=== PATIENT | male | born 1985 ===

== ENCOUNTER 2021-07-25 09:26 | Outpatient (REF) | payer MEDICAID, SELFPAY ==
--- NOTE | ~2021-07-25 | US_ITS ---
EXAMINATION: US PELVIS, LIMITED/FOLLOW UP CLINICAL INFORMATION: Tender right inguinal mass. Question hernia versus lymphadenopathy COMPARISON: None TECHNIQUE: Grayscale and color imaging of the right inguinal region using a linear transducer FINDINGS: There are 5 right inguinal lymph nodes seen. These are normal in size and demonstrate normal ultrasound morphology and flow. No hernia is seen. US/US pelvic limited IMPRESSION: Right inguinal lymphadenopathy.
== END 2021-07-25 09:27 | disposition home or self-care (01) ==
LOC: HO.US 09:26
PROVIDERS: PCP Registered Nurse; Visit Provider Registered Nurse
DX: R19.09 Other intra-abdominal and pelvic swelling, mass and lump (principal)
CPT/HCPCS: 76857

== ENCOUNTER 2022-08-25 12:49 | Emergency (ER) | payer MEDICAID, SELFPAY ==
--- NOTE | ~2022-08-25 | CT_ITS ---
EXAMINATION: CT ABDOMEN AND PELVIS WITH CONTRAST CLINICAL INFORMATION: Postsurgical local swelling COMPARISON: None available. TECHNIQUE: Multidetector volumetric images were obtained from the superior aspect of the liver through the pubic symphysis following administration 85 mL of Omnipaque 350 intravenous contrast. Sagittal and coronal reformatted images were obtained on the technologist's workstation. Oral contrast: No This CT examination was performed using dose optimization techniques as appropriate, variously including the following: *Automated exposure control *Adjustment of mA and/or kV according to patient size (this includes techniques or standardized protocols for targeted exams where dose is matched to indication/reason for exam; i.e. extremities or head) *Use of iterative reconstruction technique DLP: 982 mGy-cm FINDINGS: LUNG BASES: There is atelectasis at the right lung base. There is large pleural effusion on the left surrounding consolidation of the left lower lobe LIVER, GALLBLADDER, AND BILIARY TREE: The liver is normal in size, shape, and attenuation. No focal hepatic lesion or biliary ductal dilatation is present. The gallbladder is unremarkable with no evidence of radiopaque gallstones, gallbladder wall thickening, or obvious pericholecystic inflammatory changes. PANCREAS: Unremarkable. SPLEEN: Unremarkable. There is small amount of gas in the left border or the spleen ADRENAL GLANDS: Unremarkable. KIDNEYS AND URETERS: There is infarct of the lower pole of left kidney with surgical material surrounding and small amount of gas surrounding left kidney, most likely due to infection but perforation of adjacent bowel loop couldn't be excluded. There is large collection of low-attenuation fluid extending from the mid left kidney cephalad, with attenuation of - 8HU, likely a urinoma. Small amount of gas seen in this collection due to early abscess formation. The fluid collection abating the left psoas muscle with irregularity of psoas muscle most likely due to hematoma. There is small amount of surgical material seen in the lower portion of collection possibly retained surgical material versus sutures. BLADDER: Unremarkable. GASTROINTESTINAL TRACT: No evidence of bowel obstruction. Small amount of gas adjacent to the stomach and left side of the colon could be related to bowel perforation versus infection. Abdominal wall: The left side of the abdominal wall revealed ill-defined soft tissue mass related to recent surgical procedure and surgical wound with small amount of fluid collection. There is a small collection is inseparable from the anterior abdominal wall, extending toward the collection in the left perinephric space. LYMPH NODES: Normal. VASCULAR: Unremarkable. PELVIC VISCERA: Unremarkable. OSSEOUS STRUCTURES: Unremarkable. CT/CT abdomen pelvis w IV con IMPRESSION: 1. Large left pleural effusion, surrounding consolidation of left lower lobe. 2. Infarct of the lower pole of left kidney with large, possibly infected urinoma. 3. Small amount of gas adjacent to the stomach and left side of the colon most likely related to bowel perforation versus extension of infection from left urinoma. 4. Hematoma in the left psoas muscle and left anterior abdominal wall. 5. Surgical wound in the left side of the abdominal wall with small amount of fluid collection. This critical result was discussed with Dr. Paula at 1607 on 08/25/2022 and it was ascertained that the content and urgency of the report was understood at the time of direct communication. Fleischner guidelines were followed.
[2022-08-25 13:54] VITALS: BP 131/81; PULSE 105; RESP 20; TEMP 36.8; O2SAT 100; BMI 25.0
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
[2022-08-25 14:00] VITALS: BP 124/78; PULSE 105; RESP 16; TEMP 37.1; O2SAT 98
[2022-08-25 14:14] LABS: MANUAL DIFF FLAG NO
[2022-08-25 14:18] LABS: Basophils Percent Auto 0.1 % (0-2); Eosinophils Percent Auto 0.3 % (0-4); Hematocrit 28.7 % (42.0-52.0); Hemoglobin 9.1 g/dl (14.0-18.0); Imm Gran Abs Auto 0.06 X10*3/uL (0.00-0.03); Imm Gran Pct Auto 0.5 % (0.0-0.4); Lymphocytes Absolute Auto 1.6 X10*3/uL (1.2-4.9); Lymphocytes Percent Auto 12.2 % (20-40); Mean Corpuscular HGB Conc 31.7 g/dl (31.0-36.0); Mean Corpuscular Hemoglobin 27.8 pg (27.0-33.0); Mean Corpuscular Volume 87.8 fL (80.0-98.0); Mean Platelet Volume 8.9 fL (9.4-12.4); Monocytes Absolute Auto 0.8 X10*3/uL (0.1-1.2); Monocytes Percent Auto 5.8 % (2-11); Neutrophils Absolute Auto 10.8 x10*3/uL (2.0-8.3); Neutrophils Percent Auto 81.1 % (45-73); Platelet Count 619 X10*3/uL (160-400); Red Blood Count 3.27 X10*6/uL (4.60-5.80); Red Cell Distribution Width 13.9 % (11.0-16.0); White Blood Count 13.3 X10*3/uL (4.8-10.8)
[2022-08-25 14:38] LABS: Alanine Aminotransferase 11 U/L (0-40); Albumin Level 3.8 g/dL (3.5-5.0); Alkaline Phosphatase 64 U/L (39-117); Anion Gap 15 (12-20); Aspartate Amino Transferase 16 U/L (5-37); Bilirubin Total 0.3 mg/dL (0.0-1.0); Blood Urea Nitrogen 14 mg/dL (9-16); Calcium 10.1 mg/dL (8.4-10.2); Carbon Dioxide 24 mmol/L (22-29); Chloride 105 mmol/L (96-108); Creatinine Clr Calc Pharmacy 122.8; Estimated Glomerular Filt Rate > 60; Glucose Random 95 mg/dL (60-115); Lipase 27 U/L (8-78); Potassium 4.4 mmol/L (3.3-5.1); Sodium 140 mmol/L (135-145); Total Protein 8.9 g/dL (6.5-8.0)
[2022-08-25 14:48] LABS: Appearance Urine Turbid; Color Urine Dark Yellow; Glucose Urine UA Negative (Negative); Leukocyte Esterase Urine Small (1+) (Negative); Nitrite Urine Negative (Negative); PH 5.5 (5.0-9.0); Specific Gravity - Urine >= 1.030 (1.005-1.025); UMIC TRIGGER UACC YES; Urine Blood Moderate (2+) (Negative); Urine Ketones Trace mg/dL (Negative); Urine Protein 100 (2+) mg/dL (Neg-Trace)
--- NOTE | 2022-08-25 14:52 | PC.NURSE ---
PT REFUSING TO SIT DOWN FOR IV ACCESS, HE WILL NOT END HIS PHONE CONVERSATION AT THIS TIME. WILL RE ATTEMPT WHEN PHONE CALL HAS BEEN COMPLETED
[2022-08-25 14:57] LABS: Bacteria Urine None Seen (None Seen); Hyaline Casts Urine 0-2 /LPF (0-2); RBC Urine 0-2 /HPF (0-2); Squamous Epithelial Cell Urine 0-2 /HPF (0-2); UACC Culture Trigger YES; WBC Urine >50 /HPF (0-5)
[2022-08-25] MEDS: iohexoL 350 MG/ML 100 ML INFUS..BTL IV (15:24)
[2022-08-25 15:28] VITALS: BP 120/52; PULSE 97; RESP 14; TEMP 37.1; O2SAT 99
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
== END 2022-08-25 17:19 | disposition left against medical advice (07) ==
PROVIDERS: Physician Assistant; Emergency Provider Emergency Medicine; PCP Registered Nurse
DX: R10.32 Left lower quadrant pain (principal); Z79.899 Other long term (current) drug therapy
CPT/HCPCS: 36415; 74177; 80053; 81001; 83690; 85025; 87086; 99284; Q9967

== ENCOUNTER 2023-07-12 03:19 | Emergency (ER) | payer MEDICAID, SELFPAY ==
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
[2023-07-12 03:21] VITALS: BP 146/90; PULSE 86; O2SAT 99
[2023-07-12 03:28] VITALS: BP 125/79; PULSE 69; RESP 18; O2SAT 98
[2023-07-12 03:33] VITALS: BMI 26.6
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
--- OUTSIDE RECORDS SUMMARY | 2023-07-12 04:42 | XMS_ITS | Continuity of Care Document ---
Author Organization [facility] ter Address [address] [place] [id number]- Care Team Providers Care Estate Planning Attorney Name Role Phone [place] LEVEL VIAL INSIDE GRINDER, Lary Primary Care Physician Encounter [facility] [place] Date(s): 10/15/22 - 10/15/[address] [address] Discharge Disposition: A-D/C Home Attending Physician: Mxa Holt MD Admitting Physician: Max Holt MD Referring Physician: Max Holt MD Allergies, Adverse Reactions, Alerts No Known Allergies Medications acetaminophen 325 mg oral capsule 1 capsule = 325 mg, By Mouth, Every 4 hours, PRN as needed for pain, # 20 capsule, 0 Refills, Maintenance, 09/25/22 9:13:00 EDT, Capsule, Partial fill upon patient request if the prescription is for a schedule II opioid drug. Start Date: 09/25/22 Status: Ordered acetaminophen 325 mg oral tablet 650 mg, 2, tablet, By Mouth, Every 4 hours, # 30 tablet, Refills 0, Tot. Refills 0, Maintenance, 09/25/22 10:01:00 EDT, Route to Pharmacy Electronically, [facility] #[id number], Partial fill upon patient request if the prescription is for a sched... Start Date: 09/25/22 Status: Ordered Bedside Commode Bedside Commode, See Instructions, # 1 each, Refills 0, Tot. Refills 0, Maintenance, Bedside Commode, 08/07/22 17:08:00 EDT, Supply Start Date: 08/07/22 Status: Ordered Colace sodium 100 mg oral capsule 100 mg, 1, capsule, By Mouth, 2 times a day, # 28 capsule, Refills 0, Tot. Refills 0, Maintenance, 08/07/22 16:49:00 EDT, Route to Pharmacy Electronically, [facility], Partial fill uponpatient request if the prescription is for a schedu... Start Date: 08/07/22 Stop Date: 08/21/22 Status: Ordered gabapentin 300 mg oral capsule 300 mg, By Mouth, Every 8 hours, # 42 capsule, Refills 0, Tot. Refills 0, Maintenance, 09/03/22 13:35:00 EDT, Route to Pharmacy Electronically, [facility], Partial fill upon patient request if the prescription is for a schedule II opioid... Start Date: 09/03/22 Stop Date: 09/17/22 Status: Ordered gabapentin 300 mg oral capsule 300 mg, 1, capsule, By Mouth, 3 times a day, # 270 capsule, Refills 0, Tot. Refills 0, Maintenance,09/25/22 10:00:00 EDT, Route to Pharmacy Electronically, [facility] #[id number], Partial fill upon patient request if the prescription is for a sc... Start Date: 09/25/22 Status: Ordered gabapentin 300 mg oral capsule 300 mg, 1, capsule, By Mouth, 3 times a day, # 270 capsule, Refills 0, Tot. Refills 0, Maintenance,08/18/22 14:02:00 EDT, Route to Pharmacy Electronically, [facility] #[id number], Partial fill upon patient request if the prescription is for a sc... Start Date: 08/18/22 Status: Ordered gabapentin 300 mg oral capsule 300 mg, 1, capsule, By Mouth, 3 times a day, # 42 capsule, Refills 0, Tot. Refills 0, Maintenance, 08/07/22 16:49:00 EDT, Route to Pharmacy Electronically, [facility], Partial fill uponpatient request if the prescription is for a schedu... Start Date: 08/07/22 Stop Date: 08/21/22 Status: Ordered ibuprofen 600 mg oral tablet 600 mg, 1, tablet, By Mouth, 4 times a day, PRN, # 40 tablet, Refills 0, Maintenance, for pain, 09/25/22 9:14:00 EDT, Partial fill upon patient request if the prescription is for a schedule II opioiddrug. Start Date: 09/25/22 Status: Ordered ibuprofen 600 mg oral tablet 600 mg, 1, tablet, By Mouth, 4 times a day, # 120 tablet, Refills 0, Tot. Refills 0, Maintenance, 09/25/22 9:59:00 EDT, Route to Pharmacy Electronically, [facility] #[id number], Partial fill upon patient request if the prescription is for a sched... Start Date: 09/25/22 Status: Ordered oxyCODONE 5 mg oral capsule 2 capsule = 10 mg, By Mouth, Every 6 hours, PRN as needed for pain, 0 Refills, Maintenance, 09/25/22 9:14:00 EDT, Capsule, Partial fill upon patient request if the prescription is for a schedule II opioid drug. Start Date: 09/25/22 Status: Ordered Oxycodone 5mg Oral Tablet (PACU ONLY) 5 mg, Tablet, By Mouth, Once, in PACU ONLY, PRN for Pain , Moderate, Routine, 10/15/22 13:36:00 EDT Start Date: 10/15/22 Stop Date: 10/15/22 Status: Completed Problem List Condition Confirmation Course Effective Dates Status [facility] atus Informant Kidney laceration Confirmed Active Results Radiology Reports * Exam Date Time Procedure Performing Provider Status 10/15/22 1:10 PM C-Arm < 1 Hour Ray Branch ( Verified) Notes: (C-Arm < 1 Hour) Reason For Exam: L CYSTO STENT REMOVAL RESULT: C-Arm < 1 Hour Urethrocystography Retrograde, C-Arm < 1 Hour INDICATION: Reason: L CYSTO STENT REMOVAL; Special Instructions: TT- 30 MIN FT- 15 SEC DAP- .5297 COMPARISONS: None TECHNIQUE: Fluoroscopy support was provided. There was no radiologist in attendance. FLUOROSCOPY TIME: 15 seconds EXPOSURE: .5297 Gycm2 (Dose Area Product) TECHNOLOGIST TIME: 30 minutes FINDINGS: 9 images were submitted. Please refer to operative note for full details. IMPRESSION: See above. WSN: [id number] Ordering Physician: Max Holt Dictated By: Sanju Meraz MD Dictated Date/Time: 10/15/22 3:00 pm Reviewed By: Sanju Meraz MD Signed By: Sanju Meraz MD Signed Date/Time: 10/15/22 3:00 pm Transcribed By: JOANN Transcribed Date/Time: 10/15/22 3:00 pm * Exam Date Time Procedure Performing Provider Status 10/15/22 1:10 PM Urethrocystography Retrograde Nomi Branch; Maikol (Verified) Notes: (Urethrocystography Retrograde) Reason For Exam: L CYSTO STENT REMOVAL RESULT: Urethrocystography Retrograde Urethrocystography Retrograde, C-Arm < 1 Hour INDICATION: Reason: L CYSTO STENT REMOVAL; Special Instructions: TT- 30 MIN FT- 15 SEC DAP- .5297 COMPARISONS: None TECHNIQUE: Fluoroscopy support was provided. There was no radiologist in attendance. FLUOROSCOPY TIME: 15 seconds EXPOSURE: .5297 Gycm2 (Dose Area Product) TECHNOLOGIST TIME: 30 minutes FINDINGS: 9 images were submitted. Please refer to operative note for full details. IMPRESSION: See above. WSN: [id number] Ordering Physician: Max Holt Dictated By: Sanju Meraz MD Dictated Date/Time: 10/15/22 3:00 pm Reviewed By: Sanju Meraz MD Signed By: Sanju Meraz MD Signed Date/Time: 10/15/22 3:00 pm Transcribed By: JOANN Transcribed Date/Time: 10/15/22 3:00 pm Vital Signs Most recent to oldest [Reference Range]: 1 2 3 Oxygen Saturation [94-100 %] 100 % (10/15/22 2:15 PM) 100 % (10/15/22 2:00 PM) 98 % (10/15/22 1:45 PM) Pulse Rate [55-90 bpm] 78 bpm (10/15/22 1:15 PM) 78 bpm (10/15/22 12:24 PM) Blood Pressure [90-138/55-84 mm Hg] 124/79mm Hg (10/15/22 2:15 PM) 119/79mm Hg (10/15/22 2:00 PM) 119/72mm Hg (10/15/22 1:45 PM) Respiratory Rate [16-30 br/min] 16 br/min (10/15/22 2:15 PM) 18 br/min (10/15/22 2:00 PM) 15 br/min *L* (10/15/22 1:45 PM) Temperature [96.8-100.4 DegF] 97.8 DegF (10/15/22 2:00 PM) 97.9 DegF (10/15/22 1:15 PM) 98.8 DegF (10/15/22 12:24 PM) Liters per Minute 6 L/min (10/15/22 1:15 PM) Mode of Delivery (Oxygen) Room air (10/15/22 2:00 PM) Room air (10/15/22 1:45 PM) Room air (10/15/22 1:30 PM) Blood pressure sites Arm, left (10/15/22 2:15 PM) Arm, left (10/15/22 2:00 PM) Arm, left (10/15/22 12:24 PM) Temperature Route Temporal (10/15/22 2:00 PM) Temporal (10/15/22 1:15 PM) Temporal (10/15/22 12:24 PM) Dry Weight 78.7 kg (10/15/22 12:24 PM) Dry Weight Obtained Via Standing scale (10/15/22 12:24 PM) Social History Social History Type Response Sex Male Note * Indira Quick: PERFORM Event Display: Discharge/Transfer Note Hospital Authored Date: [id number] Nursing Discharge Note Entered On: 10/15/2022 15:01 EDT Performed On: 10/15/2022 15:01 EDT by Indira Quick Nursing Discharge Note 2 Discharge Time : 10/15/2022 14:59 EDT Discharge Level of Care at Discharge : Home/Senior Care/Foster Care Patient Left Unit Via : Wheelchair Patient Accompanied Off Unit with : Significant other DC Instructions Provided & Signed by Pt : Yes Patient Understands D/C Instructions : Yes Verbalized Understanding of D/C Plan By : Patient, Significant other Patient Instructions Discharge Signed : Yes Did Pt have Specialty Bed or Wound Vac : No Indira Quick - 10/15/2022 15:01 EDT * Indira Quick: PERFORM Event Display: Patient Education/Instruction Authored Date: [id number] Surgery Adult Discharge Instructions [address] [address] Name: ROSETTE THOMPSON : 1985?? Visit: 10/15/2022 11:56?? Current Date: 10/15/2022 13:55 ?? Account: [id number]?? Surgery Discharge Instructions We would like to thank you for allowing us to assist you with your healthcare needs. The following includes patient education materials and information regarding your injury/illness. Our entire staffstrives to provide an excellent experience for our patients and their families. PLEASE ENSURE YOU FOLLOW-UP PER THE INSTRUCTIONS BELOW! ?? YOUR OPINION IS IMPORTANT TO US! Please complete the survey you may receive by mail or email. Your feedback will be used to make improvements to the healthcare experiences of our patients and their families. Surveys are administered by [employer] ?? If further treatment with your primary care physician or another doctor is recommended, it is important for you to keep the appointment. Call your primary care physician or return to the Emergency Department immediately if your condition worsens, fails to improve, or new symptoms develop. If you need to find a doctor, you can call [facility] [employer] for a referral at [phone] or toll free at [phone] ([phone]) or log in to [email or web address].. ?? You can view and manage your care through the patient portal or by using a health care klarissa of your choosing. Th[employer] is a website that allows you to securely view your medical information including your hospital discharge summary, office visit summaries, medications and follow-up visits. You can also request appointments, renew medications, and request access to your medical information using a health care klarissa of your choosing, or just ask a question. You are entitled to know the individuals who participated in your treatment. This information is available within your medical record and will be provided upon your request. You can enroll at [email or web address] or register d uring your next office visit. You have been discharged from [facility], Patient Care Unit: [facility]??. If you have any questions regarding these instructions after you leave, please call us and we will be happy to assist you. [facility] Your Care Team Attending Physician Max Holt MD?? Discharging Providers Max Holt MD Reason for Admission LACERATION OF LEFT KIDNEY CYSTO DS CS Primary Care Provider [place] LEVEL VIAL INSIDE GRINDER, Lary? Advance Directive Health Care Proxy on File No What to do next Instructions From Your Doctor ?? Orders?? Daystay Protocol, ??When Unit Discharge Criteria Met, ??10/15/22 13:11:00 EDT?? Prescriptions??, ??10/15/22 13:11:00 EDT?? Instructions from your Care Team per provided paperwork You Need to Schedule the Following Appointments Follow Up with??Max Holt Where: [address] [facility] [place] [address]- Business (1) Follow Up with??[facility] When:??In 0 days Where: [address] [place] [address]- Business (1) Discharge Medications ROSETTE THOMPSON :1985 Visit Date:10/15/2022 Medications: Please continue your medications until treatment is completed or stopped by your provider. You may resume your daily prescription medications. Discuss any questions related to medications with your provider. What How Much When Instructions Next Dose Unchanged Acetaminophen (acetaminophen 325 mg oral capsule) 1 capsule Oral Every 4 hours as needed for as needed for pain Unchanged Acetaminophen (acetaminophen 325 mg oral tablet) 2 tab(s) Oral Every 4 hours Unchanged Docusate (Colace sodium 100 mg oral capsule) 1 capsule Oral Twice a day Duration: 14 Days Unchanged Gabapentin (gabapentin 300 mg oral capsule) 1 capsule Oral 3 times a day Unchanged Gabapentin (gabapentin 300 mg oral capsule) 1 capsule Oral 3 times a day Unchanged Gabapentin (gabapentin 300 mg oral capsule) 300 Milligram Oral Every 8 hours Duration: 14 Days Unchanged Gabapentin (gabapentin 300 mg oral capsule) 1 capsule Oral 3 times a day Duration: 14 Days Unchanged Ibuprofen (ibuprofen 600 mg oral tablet) 1 tab(s) Oral 4 times a day as needed for for pain Unchanged Ibuprofen (ibuprofen 600 mg oral tablet) 1 tab(s) Oral 4 times a day Unchanged Miscellaneous Rx (Bedside Commode) See instructions Bedside Commode ?? Unchanged Oxycodone (oxyCODONE 5 mg oral capsule) 2 capsule Oral Every 6 hours as needed for as needed for pain Allergies (NKA means No Known Allergies) NKA Education Materials Below is the list of Educational Leaflet Providered with your Discharge Instructions. Surgery Medical Daystay Surgical Overnight Discharge Instructions?? Surgery Medical Daystay Surgical Overnight Discharge Instructions?? Valuables and Belongings I fully understand and agree that [facility] accepts no responsibility for all my personal property including clothing, toilet articles, radios, jewelry, dentures, hearing aids, rings, money, or any other property that is in my possession or is brought to me after admission. I understand certain valuables may be placed in a hospital safe for a short period of time. I understand that the hospital is not liable for loss or damage due to accident, fire, or other natural occurrence while said property is in the safe. I accept full responsibility for any personal property that I keep with me, and will not hold the hospital responsible in case of loss or disappearance. I acknowledge that i have been encouraged to send valuables and belongings home. ?? Review of Valuable and Belonging List: With patient Date for Pt to Sign Valuables/Belongings: 10/15/22 12:24:00 ?? Valuables & Belongings ?? Clothes Electronic devices Jewelry Monetary Items Personal devices Miscellaneous Medications (Valuables) Valuables at Bedside Pants, Shirt, Shoes, Undergarments Cell phone Necklace, Watch Money Glasses ? Valuables Sent Home ? Valuables Sent to Security ? Other Discharge Information ? Pulmonary Rehab Status?? Pulmonary Rehab Discharge Status?? Respiratory Rate:??15 br/min??Low ? Common Emergency Awareness Tips IS IT A STROKE? Act FAST and Check for these signs: FACE Does the face look uneven? ARM Does one arm drift down? SPEECH Does their speech sound strange? TIME Call at any sign of stroke ?? Heart Attack Signs Chest discomfort: Most heart attacks involve discomfort in the center of the chest and lasts more than a few minutes, or goes away and comes back. It can feel like uncomfortable pressure, squeezing, fullness or pain. Discomfort in upper body: Symptoms can include pain or discomfort in one or both arms, back, neck, jaw or stomach. Shortness of breath: With or without discomfort. Other signs: Breaking out in a cold sweat, nausea, or lightheaded. Remember, MINUTES DO MATTER. If you experience any of these heart attack warning signs, call to get immediate medical attention! ?? Smoking can increase your chances of developing chronic health problems and can cause harmful effects to other family members in your house. If you smoke, you are strongly encouraged to quit. Please call [facility] [employer] at [phone] or [phone] ([phone]) or log in to [email or web address] for referrals to smoking cessation programs. ?? The National Suicide Prevention Hotline is available 29/09 if you or someone you know needs to find a reason to keep living. By calling 2-663-601-Weesh (3287) you'll be connected to a skilled, trained counselor at a crisis center in your area. SURGERY DISCHARGE INSTRUCTIONS SIGNATURE ROSETTE HOPE Location:[facility] Registration Date and Time:10/15/2022 11:56 EDT Primary Care Physician: Lary Rubin NP, Attending Physician: Max Holt MD, I ROSETTE THOMPSON, have received the above patient education materials/instructions and have verbalized understanding. If ambulance or transport services are being used I further acknowledge being givena choice of service. ?? If you need to contact me, please call me at this number: . Patient/Instrumentation And Control Technician Name: Patient/Instrumentation And Control Technician Signature: Relationship to Patient: Witness Name/Signature: Date: * Tyesha Rankin RN: PERFORM, SIGN, VERIFY Event Display: Patient Education Handout Authored Date: [id number] * Indira Quick: PERFORM Event Display: Patient Education Leaflets Authored Date: [id number] Surgery Medical Daystay Surgical Overnight Discharge Instructions ?? 295 Medical Daystay/Surgical Overnight Discharge Instructions ? Since your coordination and judgment may be altered by medication and/or anesthesia, a responsible adult must drive you home from the hospital. ? If you have received medication for pain or sedation while under our care, you should not drive, operate machinery, drink alcohol, or sign any legal documents for 24 hours.?? You should have someone with you at home tonight. ? Remain at home the day of discharge.?? You may be up and about unless otherwise instructed by your physician. ? You may resume your daily prescription medication schedule.?? Any depressant medication should be avoided for 24 hours unless otherwise instructed by your surgeon or anesthesiologist. ? Call your physician for a follow-up appointment.? If you experience unusual or severe pain not relied by your pain medication, excessive bleedingor drainage, persistent nausea and vomiting, excessive swelling or redness, foul odor from incisionsite or fever over 100.6F, you need to call your physician. ? A follow-up phone call by a nurse will be made the day after your procedure.?? If you have stayed with us over night, you will not be receiving a follow-up phone call. ? Nausea and vomiting are a common side effect of prescription pain medication.?? We recommend that pills are not taken on an empty stomach.?? While taking any prescription pain medication you should not drive or drink alcohol. ? * Massiel DILLARD, Tyesha: PERFORM Event Display: Patient Education Leaflets Authored Date: [id number] Surgery Medical Daystay Surgical Overnight Discharge Instructions ?? 295 Medical Daystay/Surgical Overnight Discharge Instructions ? Since your coordination and judgment may be altered by medication and/or anesthesia, a responsible adult must drive you home from the hospital. ? If you have received medication for pain or sedation while under our care, you should not drive, operate machinery, drink alcohol, or sign any legal documents for 24 hours.?? You should have someone with you at home tonight. ? Remain at home the day of discharge.?? You may be up and about unless otherwise instructed by your physician. ? You may resume your daily prescription medication schedule.?? Any depressant medication should be avoided for 24 hours unless otherwise instructed by your surgeon or anesthesiologist. ? Call your physician for a follow-up appointment.? If you experience unusual or severe pain not relied by your pain medication, excessive bleedingor drainage, persistent nausea and vomiting, excessive swelling or redness, foul odor from incisionsite or fever over 100.6F, you need to call your physician. ? A follow-up phone call by a nurse will be made the day after your procedure.?? If you have stayed with us over night, you will not be receiving a follow-up phone call. ? Nausea and vomiting are a common side effect of prescription pain medication.?? We recommend that pills are not taken on an empty stomach.?? While taking any prescription pain medication you should not drive or drink alcohol. ? Patient Care team information Care Team Personnel Name: Trevon Montes RN Position: [facility] RN Member Role: Primary Care Nurse Name: Jud Bravo RN Position: S RN Member Role: Primary Care Nurse Name: Lila Galloway RN Position: S RN Member Role: Primary Care Nurse Name: Rachael Michele RN Position: S RN Member Role: Primary Care Nurse Name: Roxie Potts RN Position: S RN Member Role: Primary Care Nurse Name: Janiya Hayes RN Position: S RN Member Role: Primary Care Nurse Name: Lary Rubin NP Position: Reference Physician Member Role: PCP Address: Address: [address] [place] [address]- Care Team Related Persons Name: ESTEBAN ESPARZA Address: home [place] [address]
--- OUTSIDE RECORDS SUMMARY | 2023-07-12 04:42 | XMS_ITS | Continuity of Care Document ---
Author Organization [facility] Address [address] [place] [address] ve [address] [place] [address]- Care Team Providers Care Creative Writing Professor Name Role Phone Harmony MATERIALS SUPERVISOR, Lary Primary Care Physician [phone] [place] [facility] [place] - 10/02/[address] [place] [address]- Attending Physician: Elicia Chase MD Allergies, Adverse Reactions, Alerts No Known [...] 09/25/22 10:01:00 EDT, Route to Pharmacy Electronically, [email or web address] #[id number], Partial fill upon patient request if the [...] 08/07/22 16:49:00 EDT, Route to Pharmacy Electronically, [facility], Partial fill uponpatient request if the prescription is for a schedu... Start Date: 08/07/22 Stop Date: 08/21/22 Status: Ordered gabapentin 300 mg oral capsule 300 mg, By Mouth, Every 8 hours, # 42 capsule, Refills 0, Tot. Refills 0, Maintenance, 09/03/22 13:35:00 EDT, Route to Pharmacy Electronically, [facility], Partial fill upon patient request if the prescription is for a schedule II opioid... Start Date: 09/03/22 Stop Date: 09/17/22 Status: Ordered gabapentin 300 mg oral capsule 300 mg, 1, capsule, By Mouth, 3 times a day, # 270 capsule, Refills 0, Tot. Refills 0, Maintenance,09/25/22 10:00:00 EDT, Route to Pharmacy Electronically, [facility] #[id number], Partial fill upon patient request if the prescription is for a sc... Start Date: 09/25/22 Status: Ordered gabapentin 300 mg oral capsule 300 mg, 1, capsule, By Mouth, 3 times a day, # 270 capsule, Refills 0, Tot. Refills 0, Maintenance,08/18/22 14:02:00 EDT, Route to Pharmacy Electronically, [facility] #[id number], Partial fill upon patient request if the prescription is for a sc... Start Date: 08/18/22 Status: Ordered gabapentin 300 mg oral capsule 300 mg, 1, capsule, By Mouth, 3 times a day, # 42 capsule, Refills 0, Tot. Refills 0, Maintenance, 08/07/22 16:49:00 EDT, Route to Pharmacy Electronically, [facility], Partial fill uponpatient request [...] 09/25/22 9:59:00 EDT, Route to Pharmacy Electronically, [email or web address] #[id number], Partial fill upon patient request if the [...] opioid drug. Start Date: 09/25/22 Status: Ordered Problem List Condition Confirmation Course Effective Dates Status Health St atus Informant Kidney laceration Confirmed Active Vital Signs Most recent to oldest [Reference Range]: 1 Height 178 cm (09/25/22 9:09 AM) Weight 79.4 kg (09/25/22 9:09 AM) Pulse Rate [55-90 bpm] 104 bpm *H* (09/25/22 9:09 AM) Body Mass Index [18.5-24.99 kg/m2] 25.06 kg/m2 *H* (09/25/22 9:09 AM) Blood Pressure [90-138/55-84 mm Hg] 102/ 64mm Hg (09/25/22 9:09 AM) Temperature [96.8-100.4 DegF] 96.9 DegF (09/25/22 9:09 AM) Blood pressure sites Arm, left (09/25/22 9:09 AM) Temperature Route Temporal (09/25/22 9:09 AM) Weight Obtained Via Standing scale (09/25/22 9:09 AM) Social History Social History Type Response Sex Male Patient Care team information Care Team Personnel Name: Trevon Montes RN Position: S RN Member Role: Primary [...] RN Member Role: Primary Care Nurse Name: Harmony Lary GRIFFITH Position: Reference Physician Member Role: PCP Address: Address: [address] [place] [id number]- Care Team Related Persons Name: ISAIASMAGDA Address: [place] [address]
--- OUTSIDE RECORDS SUMMARY | 2023-07-12 04:42 | XMS_ITS | Continuity of Care Document ---
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 [facility] CT scan of 08/25/2022 FINDINGS: [employer] View Findings, Lines and Tubes: None. Visualized Chest: Significant left lung base atelectasis with very mild right lung base atelectasis. There is a moderate low-attenuation left pleural effusion. Normal cardiac size without pericardialeffusion. Diaphragm: Normal. Liver: Normal. Gallbladder: No CT evidence of gallbladder pathology. Bile ducts: No biliary ductal dilation. Spleen: Normal. Pancreas: Normal. Adrenal glands: Normal. Kidneys and ureters: The right kidney and right ureter are unremarkable. On the left, there is absence of enhancement in the inferior pole consistent with infarct. Parenchymal thickness is normal. There is radiopaque hemostatic material along the margins of the lower pole. Multiple bubbles of gas are noted along the margin of the lower pole. There is normal parenchymal enhancement in the rest of the left kidney. Good contrast excretion is noted with no evidence of extravasation from the kidney.Along the lateral aspect of the left kidney and extending inferior to it, there is a large low-attenuation fluid collection measuring approximately 15.7 cm CC by 8.8 cm transverse by 9.4 cm AP. Some h emostatic material is present in its inferior aspect. Attenuation of this fluid is 14 Hounsfield units. It extends close to the site of previous colon resection but appears separate from and. Along its superior aspect, this fluid collection extends anteriorly adjacent to the spleen and the splenic flexure of the colon. There is some gas within this fluid collection at this level, best seen in seri es 606 image 31 and series 604 image 47. The left ureter is well opacified and otherwise unremarkable. Bladder: Normal. Reproductive organs: Unremarkable. Stomach, small bowel, and large bowel: The stomach and small intestine are normal. There is evidence of a recent resection in the midportion of the descending colon with a patent anastomosis. There is mild haziness in fat in this region. No bowel obstruction is present. The colon and rectum are otherwise normal. Appendix: No evidence of appendicitis. Peritoneum and retroperitoneum: There is gas in the peritoneal cavity in the left upper quadrant. There may also be a small amount of gas adjacent to the colonic anastomosis. No ascites is present. No omental or mesenteric lesions. Lymph nodes: No enlarged lymph nodes. Blood vessels: Normal. No aneurysm. No evidence of venous thrombosis. Abdominal and pelvic wall: The large left urinoma demonstrates mass effect upon the left psoas muscle. This muscle is otherwise unremarkable. There is thickening of musculature along the left anterior abdominal wall with a 2.9 x 1.1 cm fluid collection in the left external oblique muscle best seen in series 606 image 95, with attenuation 27 Hounsfield units. There is stranding in fat in the left abdominal wall. No fistula tract is demonstrated. Bones: No acute abnormality. 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 Large urinoma arising from this portion of the left kidneymeasuring 15.7 x 8.8 x 9.4 cm. There is gas within the urinoma and along the lower pole of the leftkidney which may indicate infection of this fluid. A portion of the urinoma extends anteriorly along its superior aspect, lying adjacent to the spleenand the splenic flexure of the colon. Recent partial resection of the descending colon with primary anastomosis. No evidence of bowel obstruction. Haziness and fat and possibly a small amount of gas at the operative site. An anastomotic leak cannot be excluded. Postoperative changes and edema in the left abdominal wall. 2.9 x 1.1 cm fluid collection in the left external oblique muscle likely representing resolving hematoma. Moderate left pleural effusion and volume loss in the left lower lobe. Minimal right lung base atelectasis. WSN: [id number] Ordering Physician: Earl Arita Signature Line Dictated By: Tom Morrow MD Dictated Date/Time: 08/26/22 10:01 a Reviewed By: Tom Morrow MD Signed By: Tom Morrow MD Signed Date/Time: 08/26/22 10:01 am Transcribed By: JOANN Transcribed Date/Time: 08/26/22 9:[address] Abd/Pelvis W/O + W/ IV Contrast 45 minutes spent on discharge Discharge Plan Discharge Disposition Discharge. * Kenyetta Morales RN: PERFORM Event Display: Patient Education/Instruction Authored Date: [id number] Inpatient Adult Discharge Instructions [address] [id number] Name: FREDI GONZALEZ : 1985 Visit: 08/25/2022 21:03:00 Current Date: 09/03/2022 13:57 Account: [id number] Inpatient Adult Discharge Instructions We would like to thank [...] and their families. Surveys are administered by [employer] ?? If further treatment with your primary care physician or another doctor is recommended, it is important for you to keep the appointment. Call your primary care physician or return to the Emergency Department immediately if your condition worsens, fails to improve, or new symptoms develop. If you need to find a doctor, you can call [facility] [employer] for a referral at [phone] or toll free at [phone] ([phone]) or log in to [email or web address].. ?? You can view and manage your care through the patient portal or by using a health care beba of your choosing. [employer] is a website that allows you to securely view your medical information including your hospital discharge summary, office visit summaries, medications and follow-up visits. You can also request appointments, renew medications, and request access to your medical information using a health care beba of your choosing, or just ask a question. You can enroll at [email or web address] or register during your next office visit. You have been discharged from [facility], Patient Care Unit: SW6. If you have any questions regarding these instructions after you leave, please call us and we will be happy to assist you. [facility] Your Care Team Attending Physician Elicia Chase MD Discharging Providers Tom Viveros Reason for Admission General medical Your Diagnosis Pleural effusion on left Tests Performed Below is a partial list of the tests performed during your hospitalization. You may have had other tests and procedures not included in this list. Please discuss all test results with your provider. BUN BUN POC CARTRIDGE CALCIUM IONIZED POC CART CBC CBC w/ Differential Cell Count Fluid CHLORIDE POC CARTRIDGE Comprehensive Metabolic Panel COVID-19 (Novel Coronavirus), Rapid PCR Creatinine Creatinine Fluid CREATININE POC CARTRIDGE FLUID DIFFERENTIAL Glucose Fluid Glucose Level GLUCOSE POC GLUCOSE POC CARTRIDGE HEMATOCRIT POC CARTRIDGE HEMOGLOBIN POC CARTRIDGE INR Ionized Calcium LDH Fluid Lipase Lytes Magnesium Level pH Fluid Phosphorus Level POTASSIUM POC CARTRIDGE Protein Fluid SODIUM POC CARTRIDGE Vancomycin Random CT Abd/Pelvis W/O + W/ IV Contrast CXR CXR W/ Frontal and Lat US Guide Needle Place US Guide Pleural drainage w/dwelling cath?-- Results Pending -- XR C-Arm < 1 Hour XR Chest Single Frontal View XR Urethrocystography Retrograde You will be contacted within 72 hours with your results. Primary Care Provider Not on Staff, PCP Advance Directive Health Care Proxy on File No Patient refuses to discuss Discharge Vitals Temperature: 98.7 DegF Height: 178 cm Pulse Rate: 83 bpm Weight: 78.5 kg Respiratory Rate: 18 br/min Body Mass Index: 24.78 kg/m2 Systolic Blood Pressure: 120 mm Hg Body surface area: 1.97 Diastolic Blood Pressure: 65 mm Hg ?? Oxygen Saturation: 100 % ?? Studies Pending All tests and labs ordered during this hospital stay have been completed unless listed below. Please discuss all pending results with your provider listed above in these instructions. ?? Anaerobic Culture BUN Creatinine Electrolytes (Lytes) Glucose Level Ionized Calcium Magnesium Level Phosphorus Level Type and Screen US Guide Pleural drainage w/dwelling cat Chest 2 Views Frontal and Lat (CXR W/ Frontal and Lat) What to do next Instructions From Your Doctor Trauma Special Instructions? If you develop fever, chills, increased pain, nausea, vomiting, bleeding, or increased redness or pus around the wound please call the trauma surgery office at . Please take medicationsas prescribed and do not drive while on narcotic medications.? If you have any questions, please call the trauma surgery office at . ?? Please call your Primary Care Provider within 1 week for post hospital follow up and review of yourmedications. ?? Please keep drain in place until follow up with urology, you will have to call to make an appointment ?? You will follow up with trauma as well, this appointment is made for you and show up 1 hour before appointment for chest xray ?? No heavy lifting until follow up ?? If drain fluid starts filing up quickly, or urinating becomes an issue call urology immediately Discharge Orders Scheduled Follow-Up Appointments Thursday 1:00 PM EDT ?? With: Pau GRIFFITH, Lux Santos Where: Trauma Surg [address] [place] [address]- Status: Pending You Need to Schedule the Following Appointments Follow Up with??Letty LEVI, Jeremias Bravo When:??Within 1 to 2 weeks Where: [address] [facility] [place] [address]- Discharge Medications FREDI GONZALEZ :1985 Visit Date:08/25/2022 Medications: Please continue your medications until treatment is completed or stopped by your provider. Medications not listed below should be discontinued. Discuss any questions related to medications with your provider. What How Much When Instructions Next Dose New Acetaminophen (acetaminophen 325 mg oral tablet) 975 Milligram Oral Every 8 hours Duration: 14 Days Pickup at [place] [address] 10:30 pm New Diazepam (Valium 5 mg oral tablet) 5 Milligram Oral 3 times a day as needed for Spasm Duration: 5 Days Pickup at [place] [address] New Polyethylene Glycol 3350 (ClearLax oral powder for reconstitution) 17 gram Oral Daily Duration: 10 Days Pickup at [place] [address] if constipated Changed Gabapentin (gabapentin 300 mg oral capsule) 300 Milligram Oral Every 8 hours Duration: 14 Days Pickup at [place] [address] 5pm Changed Ibuprofen (ibuprofen 600 mg oral tablet) 1 tab(s) Oral 4 times a day Duration: 14 Days Pickup at [place] [address] 3pm, 9pm Changed Oxycodone (oxyCODONE 5 mg oral tablet) 5 Milligram Oral Every 4 hours as needed for Pain , Moderate Duration: 5 Days Pickup at [place] [address] 3pm, 7pm Changed Oxycodone (oxyCODONE 5 mg oral tablet) 1 tab(s) Oral Every 6 hours as needed for as needed for pain Unchanged Docusate (Colace sodium 100 mg oral capsule) 1 capsule Oral Twice a day Duration: 14 Days Unchanged Miscellaneous Rx (Bedside Commode) See instructions Bedside Commode ?? Pharmacy Information [place] [address]: [address], [place] [id number] [phone] Test Results Below is a partial list of the most recent Laboratory test results done prior to this discharge. You may have had other tests and procedures not included in this list. Please discuss all test resultswith your provider. Antibody Screen - Negative (08/25/2022) Blood Type - O Positive (08/25/2022) Est Creatinine Clearance - 87.24 mL/min (09/02/2022) BUN (09/02/2022) ???BUN - 14 mg/dL BUN POC CARTRIDGE (08/25/2022) ???BUN (POC) POC Cartridge - 14 mg/dL CALCIUM IONIZED POC CART (08/25/2022) ???Ionized Calcium (POC) POC Cartridge - 1.23 mmol/L CBC (08/30/2022) ???WBC - 6.5 k/mm3???RBC - 2.80 m/mm3???Hgb - 7.6 Gm/dL???Hct - 24.7 %???MCV - 88.2 femtoliters???MCH - 27.1 pg???MCHC - 30.8 g/dL???Platelet Count - 476 k/mm3???RDW-SD - 47.1 femtoliters???MPV - 9.3femtoliters???Nucleated RBC (Automated) - 0.0 #/100 WBC'S???Abs. NRBC - 0.0 k/mm3 CBC w/ Differential (09/02/2022) ???WBC - 6.3 k/mm3???RBC - 2.85 m/mm3???Hgb - 7.7 Gm/dL???Hct - 25.3 %???MCV - 88.8 femtoliters???MCH - 27.0 pg???MCHC - 30.4 g/dL???Platelet Count - 447 k/mm3???RDW-SD - 48.2 femtoliters???MPV - 9.0femtoliters???Nucleated RBC (Automated) - 0.0 #/100 WBC'S???Abs. NRBC - 0.0 k/mm3???Abs. Neut - 3.2 k/mm3???Abs. Lymph - 2.1 k/mm3???Abs. Sioux - 0.5 k/mm3???Abs. Eo - 0.5 k/mm3???Abs. Baso - 0.0 k/mm3???Neut % - 50.2 %???Lymph % - 32.9 %???Sioux % - 8.4 %???Eos % - 7.3 %???Baso % - 0.2 %???Imm Gran - 1.0 %???Abs. Imm Gran - 0.1 k/mm3 Cell Count Fluid (08/27/2022) ???Color, Fluid - YELLOW???Appearance, Fluid - HAZY???WBC, Fluid - 3267 per Cubic Millimeter???RBC,Fluid - 3580 per Cubic Millimeter CHLORIDE POC CARTRIDGE (08/25/2022) ???Chloride (POC) POC Cartridge - 102 mmol/L Comprehensive Metabolic Panel (08/25/2022) ???Sodium - 138 mmol/L???Potassium - 4.5 mmol/L???Chloride - 102 mmol/L???Bicarbonate Level - 25 mmol/L???Anion Gap - 11???Glucose Level - 96 mg/dL???BUN - 15 mg/dL???Creatinine-Blood - 0.9 mg/dL???Estimated GFR Creatinine - 113 ML/MIN/1.73 M2???Calcium - 9.4 mg/dL???Protein, Total - 7.3 Gm/dL???Alb umin - 3.6 Gm/dL???AG Ratio - 1.0???Alkaline Phosphatase - 65 units/L???AST (SGOT) - 11 units/L???ALT (SGPT) - 8 units/L???Bilirubin, Total - 0.2 mg/dL COVID-19 (Novel Coronavirus), Rapid PCR (08/25/2022) ???COVID-19 by RT-PCR - NEGATIVE Creatinine (09/02/2022) ???Creatinine-Blood - 1.2 mg/dL???Estimated GFR Creatinine - 81 ML/MIN/1.73 M2 Creatinine Fluid (08/29/2022) ? ?Creatinine, Fluid - >122.0 mg/dL CREATININE POC CARTRIDGE (08/25/2022) ???Creatinine (POC) POC Cartridge - 0.8 mg/dL FLUID DIFFERENTIAL (08/27/2022) ???Seg, Fluid - 61 %???Lymph, Fluid - 36 %???Sioux, Fluid - 3 % Glucose Fluid (08/27/2022) ???Glucose, Fluid - 98 mg/dL Glucose Level (09/02/2022) ???Glucose Level - 96 mg/dL GLUCOSE POC (08/27/2022) ???Glucose, POC - 109 mg/dL GLUCOSE POC CARTRIDGE (08/25/2022) ???Glucose (POC) POC Cartridge - 98 HEMATOCRIT POC CARTRIDGE (08/25/2022) ???Hematocrit (POC) POC Cartridge - 25 % HEMOGLOBIN POC CARTRIDGE (08/25/2022) ???Hemoglobin (POC) POC Cartridge - 8.5 Gm/dL INR (08/25/2022) ???INR - 1.1???Protime (PT) - 12.0 seconds Ionized Calcium (09/02/2022) ???Calcium, Ionized pH Corrected - 1.28 mmol/L LDH Fluid (08/27/2022) ???LDH, Fluid - 341 units/L Lipase (08/25/2022) ???Lipase - 27 units/L Lytes (09/02/2022) ???Sodium - 140 mmol/L???Potassium - 4.4 mmol/L???Chloride - 106 mmol/L???Bicarbonate Level - 24 mmol/L???Anion Gap - 10 Magnesium Level (09/02/2022) ???Magnesium - 2.2 mg/dL pH Fluid (08/27/2022) ???Fluid pH - 7.51 Phosphorus Level (09/02/2022) ???Phosphorus - 4.3 mg/dL POTASSIUM POC CARTRIDGE (08/25/2022) ???Potassium (POC) POC Cartridge - 4.0 mmol/L Protein Fluid (08/27/2022) ???T. Protein, Fluid - 5.1 Gm/dL SODIUM POC CARTRIDGE (08/25/2022) ???Sodium (POC) POC Cartridge - 138 mmol/L Vancomycin Random (08/29/2022) ???Vancomycin Level, Random - 11.3 mg/L Allergies (NKA means No Known Allergies) NKA Problems Active Problems??(1) Kidney laceration?? Education Materials Below is the list of Educational Leaflet Providered with your Discharge Instructions. Understanding Pleural Effusion?? Pleural Effusion?? Valuables and Belongings I fully understand and agree that [facility] accepts no responsibility for all my personal [...] of Valuable and Belonging List: With patient Possessions released to: sock off in Pre-op Date for Pt to Sign Valuables/Belongings: 08/31/22 12:25:00 ?? Valuables & Belongings ?? Clothes Electronic devices Jewelry Monetary Items Personal devices Miscellaneous Medications (Valuables) Valuables at Bedside Pants, Shirt, Slippers, Undergarments, Other: hat Cell phone, Other: storekeeper helper for the cell -phone Necklace, Watch ? Valuables Sent Home ? Valuables Sent to Security ? Other Discharge Information ?? Wound Assessment?? Wound Assessment?? Wound Location I: Chest, left lateral Wound Location II: Flank, Left ?? Case Management Discharge Plan?? Discharge Plan?? Discharge Agency Information?? Discharge Level of Care at Discharge: Homehealth/VNA Name of Agency #1: [facility] [phone] Discharge VNA/Hospice/Home Care: [facility] [phone] Agency [facility] Review Nurse #1: Intake ?? Service Categories #1: [facility]fp, Wound Care ?? [facility] to assist with your wound care. ??Please4 call their office with any questions. ?? Pulmonary Rehab Status?? Pulmonary Rehab Discharge Status?? Respiratory Rate: 18 br/min ? Common Emergency Awareness Tips IS IT [...] are strongly encouraged to quit. Please call [facility] [employer] at [phone] or [phone] ([phone]) or log in to [email or web address] for referrals to smoking cessation programs. ?? 803 Suicide & Crisis Lifeline is available 29/09 if you or someone you know needs to find a reason to keep living. By calling 094 you'll be connected to a skilled, trained counselor at a crisis center in your area. INPATIENT DISCHARGE INSTRUCTIONS SIGNATURE FREDI HOPE Location:[facility] Registration Date and Time:08/25/2022 21:03 EDT Primary Care Physician: Not on Staff, PCP Attending Physician: Elicia Chase MD, IVETTE FRANCISIS, have received the above patient education materials/instructions and have verbalized understanding. If ambulance or transport services are being used I further acknowledge being givena choice of service. ?? If you need to contact me, please call me at this number: . Patient/Jet Wiper Name: Patient/Jet Wiper Signature: Relationship to Patient: Witness Name/Signature: Date: * Tom Viveros: PERFORM Event Display: Patient Education Leaflets Authored Date: [id number] Understanding Pleural Effusion ?? [id number] Understanding Pleural Effusion Your healthcare provider has told you that you have a pleural effusion. The pleura are 2 layers of thin, smooth tissue around the lungs and lining the chest. Pleural effusion means that you have extra fluid between the pleura. This area is called the pleural space. The pleural space normally holds only a small amount of fluid. This fluid lubricates the pleura. But if too much fluid fills the space, it can make it hard or painful to breathe. There are 2 types of pleural effusion: ??? Exudative. This is caused by extra fluid related to inflammation, injury, infection, or a tumor. Empyema is when pus builds up in the pleural space. ??? Transudative. This is caused by abnormal fluid pressure inside the blood vessels. The pressure can be caused by congestive heart failure (CHF). In CHF, extra fluid collects inside the lung tissues because of a weak heart muscle. This extra fluid then leaks into the pleural space. Other causes include kidney disease, liver disease, and malnutrition. Pleural effusion is fluid buildup between the layers of tissue that line the outside of the lungs. What are the symptoms of pleural effusion? Many people don't have symptoms. But the most common symptoms of either type of pleural effusion include: ??? Sharp pains in the chest, especially when taking a breath, coughing, or sneezing ??? Shortness of breath or trouble breathing ??? Cough ??? Fever ??? Extreme tiredness (fatigue) ?? What causes pleural effusion? Causes include: ??? Pneumonia or other lung infection ??? Heart failure ??? Liver disease (cirrhosis) ??? Tumor ??? Chest injury ??? Lupus ??? Kidney failure or peritoneal dialysis ??? Nephrotic syndrome ??? Pancreatitis ??? Rheumatoid arthritis ??? Tuberculosis ??? Viral lung infection ??? Cancer ??? Blood clot in the lung (pulmonary embolism) ??? Heart surgery ??? Medicine reactions ?? How??is pleural effusion diagnosed? Your healthcare provider will examine you and ask about your symptoms and your health history. Tests include: ??? Blood tests ??? Analysis of fluid in pleural space ??? Chest X-ray, CT angiography, or ultrasound ??? Thoracoscopy ?? How is pleural effusion treated? The extra fluid may be drained from the pleural space. This is done with a procedure called thoracentesis. A thin needle is used to draw out the fluid from the pleural space. In some cases, a chest tube is placed to drain the extra fluid. The tube will likely stay in place for a few days. You may have other treatments, depending on the cause of your pleural effusion. If it???s due to a bacterial infection, you will be given antibiotics to??fight the infection.??If it???s caused by??a heart condition, you will be given medicines and other treatment??for your heart. Your healthcare provider can tell you more about the cause of your pleural effusion and your treatment choices. ?? What are the long-term concerns? If untreated, pleural effusion can lead to serious health problems. These include a collapsed lung from fluid filling the pleural space. ?? Call 911 Call 911 if you have: ??? Trouble breathing ??? Chest pain that gets worse ?? When to call your healthcare provider?? Call your healthcare provider right away if you have: ??? Continued coughing ??? Fever of 100.4??F (38.0??C) or higher, or as directed by your provider ??? New symptoms or symptoms that get worse ?? Last Reviewed Date: 2021 ?? [employer]. All rights reserved. This information is not intended as a substitute for professional medical care. Always follow your healthcare professional's instructions. ?? * Tong LOUIS, Tom Gates: PERFORM Event Display: Patient Education Leaflets Authored Date: [id number] Pleural Effusion ?? [id number] Pleural Effusion The pleura is a smooth double membrane that surrounds the lungs. It separates the lungs from the chest wall. One side of the pleura attaches to the lung. The other side attaches to the chest wall. This membrane makes it easier for the chest to inflate and deflate as you breathe without rubbing against the ribs. You normally have a small amount of lubricating fluid (pleural fluid) between the pleural membranes. A pleural effusion is when too much fluid collects in the space between the two pleural membranes (pleural space). As the amount of fluid increases, it begins to press on the lung. This makes it harder to take a full breath. There are two types of pleural effusion: ??? Exudative. This is caused by extra fluid related to inflammation, injury, infection, or a tumor. Empyema is when pus builds up in the pleural space. ??? Transudative. This is caused by abnormal fluid pressures inside the blood vessels. The pressure can be caused by congestive heart failure (CHF). In CHF, extra fluid collects inside the lung tissues because of a weakened heart muscle. This extra fluid then leaks into the pleural space. Pleural effusion may cause any of these symptoms: ??? Shortness of breath ??? Rapid breathing ??? Cough or hiccups ??? Sharp chest pain that hurts more with coughing or deep breathing ??? Fever ??? Fatigue A small pleural effusion may cause no symptoms at all. Treatment will be directed at the cause of the pleural effusion. If you are having a lot of troublebreathing, the healthcare provider may do a thoracentesis procedure to remove the fluid from the pleural space. This involves placing a needle or tube (catheter) through the chest wall into the pleural space. This usually gives relief right away. But the fluid may gradually return, depending on thecause. You may be given antibiotics if your pleural effusion was caused by an infection. Home care Follow these guidelines when caring for yourself at home: ??? Rest until you feel better. Exerting yourself may make your symptoms worse. ??? Your healthcare provider may have prescribed medicines totreat the underlying cause of the pleural effusion. Take these exactly as directed. ?? Follow-up care Follow up with your healthcare provider, or as advised. ?? When to seek medical advice Call your healthcare provider right away if any of these occur: ??? Fever of 100.4??F (38??C) or higher, or as directed by your healthcare provider ??? Chills ??? Dry cough that doesn't get better with treatment ??? Generally not feeling well ??? Sudden inability to do daily activities ?? Call 911 Call 911 if any of the following occur: ??? Shortness of breath gets worse ??? Chest pain gets worse ??? Chest tightness or heaviness ??? Coughing up blood ??? Weakness, dizziness, or fainting ?? Last Reviewed Date: 2021 ?? [id number] [employer]. All rights reserved. This information is not intended as a substitute for professional medical care. Always follow your healthcare professional's instructions. ?? Patient Care team information Care Team Personnel Name: Trevon Montes RN Position: [facility] RN Member Role: Primary Care Nurse Name: Jud Bravo RN Position: [facility] RN Member Role: Primary Care Nurse Name: Lila Galloway RN Position: [facility] RN Member Role: Primary Care Nurse Name: Rachael Michele RN Position: [facility] RN Member Role: Primary Care Nurse Name: Roxie Potts RN Position: S RN Member Role: Primary Care Nurse Name: Not on Staff, PCP Position: [facility] Physician (General Medicine) Member Role: PCP Name: Janiya Hayes RN Position: [facility] RN Member Role: Primary Care Nurse Name: Leanne HALLMAN Attending Position: [facility] ED Medicine MD Name: Dianna Jensen Position: [facility] ED OA Charge Member Role: ED Associate Name: Savi Chadwick RN Position: [facility] ED RN W/OE and Tasks Member Role: Patient Care Provider Name: Steven Garcia Position: [facility] ED TA [facility] Care Team Related Persons Name: ESTEBAN ESPARZA Address: [place] [address]
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
[2023-07-12] MEDS: oxyCODONE HCl Immed Release 5 MG TABLET 10 MG PO (04:46)
[2023-07-12] MEDS: Bacitracin Oint 0.9 GM PACKET 1 APPL TOPICAL (05:07)
== END 2023-07-12 05:17 | disposition home or self-care (01) ==
PROVIDERS: Emergency Provider Internal Medicine
DX: S60.812A Abrasion of left wrist, initial encounter (principal); M25.512 Pain in left shoulder; V47.5XXA Car driver injured in collision with fixed or stationary object in traffic accident, initial encounter; Y93.9 Activity, unspecified; Y92.410 Unspecified street and highway as the place of occurrence of the external cause; Y99.9 Unspecified external cause status
CPT/HCPCS: 70450; 73030; 73110; 73130; 99284